=== PATIENT | male | born 1970 | race Caucasian/White ===

== ENCOUNTER 2017-01-25 07:15 | Emergency (ER) | payer OTHER ==
--- NOTE | ~2017-01-25 | ER ---
PATIENT'S NAME: [facility] AGE: 46 Y [address] ROOM: [place] [id number] LOCATION: [facility] ADMIT DATE: 01/25/2017 ER/Outpatient Report DISCHARGE DATE: 01/25/2017 FAMILY PHYSICIAN: Guero Chaney MD ATTENDING PHYSICIAN: Anu Jay Admission date and time documented on the medical record, I saw the patient at 0735 hours. CHIEF COMPLAINT: Right flank pain. HISTORY OF PRESENT ILLNESS: This patient is a 46-year-old male who, around 0200 hours this morning, had acute onset of right flank pain radiating to his right lower quadrant and into his CVA area. Cannot find any comfortable position. The pain is constant. Had nausea with one episode of vomiting. No diarrhea. Last bowel movement was 01/25/2017. He had some chills, but no fever. No chest pain or shortness of breath. No urinary frequency, urgency, or dysuria. No lightheadedness, dizziness, syncope, or near syncope. No fall or trauma. No headache or eyes, ears, nose, throat, neck, or spine pain. No joint or muscle swelling, redness, or pain. No skin eruptions or rash. He does have a history of non- insulin-dependent diabetes mellitus. No other endocrine problems. No neurologic changes. No psychiatric issues. HOME MEDICATIONS: See attached medication list. ALLERGIES: NONE. SOCIAL HISTORY: Nonsmoker and nondrinker. SIGNIFICANT PAST MEDICAL HISTORY: Degenerative osteoarthritis, diverticulosis, diverticulitis, non-insulin- dependent diabetes mellitus, and carpal tunnel syndrome. OPERATIONS: Carpal tunnel release. REVIEW OF SYSTEMS: All systems reviewed by me are negative with the exception of those discussed in the History of Present Illness. PATIENT'S NAME: [facility] AGE: 46 Y [address] ROOM: [place] [address] LOCATION: [facility] ADMIT DATE: 01/25/2017 ER/Outpatient Report DISCHARGE DATE: 01/25/2017 FAMILY PHYSICIAN: Guero Chaney MD ATTENDING PHYSICIAN: Anu Jay PHYSICAL EXAMINATION: VITAL SIGNS: Temperature 97 tympanic, pulse 65, respirations 24, blood pressure 156/82, and O2 saturation on room air is 99%. HEAD: Normocephalic. EYES, EARS, NOSE, AND THROAT: Clear. Mucous membranes moist. NECK: Negative. SPINE: Negative. LUNGS: Clear. HEART: Regular. ABDOMEN: Soft and nontender. Good bowel tones. No organomegaly or abnormal masses palpable. No CVA tenderness. Just has deep right flank discomfort. EXTREMITIES: Intact. NEUROVASCULAR: Intact. SKIN: Clear. LABORATORY DATA: CMS was normal except for an elevated glucose of 259. Elevated AST of 48. White count was 6700 with 84 segs, 8 lymphs, 6 monos, and 1 eos; hemoglobin was 14.3 with hematocrit 40.8; and platelet count was 288,000. Urine showed rare whites, 50 to 100 reds, rare epithelials, and negative bacteria per high- powered field. CT scan of the abdomen and pelvis with renal stone protocol showed a distal 1 mm right ureteral stone just outside the bladder. Mild hydronephrosis. CT scan was read by Radiology, see dictated transcribed report. IMPRESSION: 1. Right ureteral colic secondary to a distal 1 mm right ureteral stone just outside the bladder with mild hydronephrosis. 2. [id number] diabetes mellitus. PLAN: The patient was given IV normal saline fluids 100 mL an hour. He was given Toradol 30 mg IV in the emergency room for pain, Dilaudid 1 mg IV in the emergency room for pain, and Zofran 4 mg IV in the emergency room for nausea and vomiting. The patient was dismissed home. Observation. Activity as tolerated. Fluids and diet as tolerated. Strain urine. [place] 10/325 as needed for pain, #20. Flomax 0.4 mg one a day for 5 days, #5. Follow up with personal physician in 7 to 10 days for repeat urinalysis exam or sooner if needed. Discussion ensued with the patient concerning my findings and recommendations, he understands. ANU JAY MD PATIENT'S NAME: [facility] AGE: 46 Y [address] ROOM: [place] [address] LOCATION: [facility] ADMIT DATE: 01/25/2017 ER/Outpatient Report DISCHARGE DATE: 01/25/2017 FAMILY PHYSICIAN: Guero Chaney MD ATTENDING PHYSICIAN: Anu Jay/modl /[id number] d: 01/25/17 1410 t: 01/26/17 0613, OUTPATIENT REPORT
[2017-01-25 07:56] LABS: BILIRUBIN URINE NEGATIVE (NEGATIVE); BLOOD URINE 250 /UL (NEGATIVE); COLOR URINE YELLOW (YELLOW); GLUCOSE URINE 50 mg/dL (NEGATIVE); KETONE URINE NEGATIVE (NEGATIVE); LEUKOCYTES URINE NEGATIVE /UL (NEGATIVE); NITRITE URINE NEGATIVE (NEGATIVE); PROTEIN URINE NEGATIVE (NEGATIVE); TURBIDITY URINE CLEAR (CLEAR); UROBILINOGEN URINE NORMAL (NORMAL)
[2017-01-25 08:01] LABS: BASOPHIL # 0.1 K/uL (0.0-0.2); BASOPHIL % 0.4 %; EOSINOPHIL # 0.1 K/uL (0.0-0.5); EOSINOPHIL % 0.6 %; HEMATOCRIT 40.8 % (37.0-53.0); HEMOGLOBIN 14.3 g/dL (12.0-17.0); IMMATURE GRANULOCYTE # 0.1 K/uL (0.0-0.3); IMMATURE GRANULOCYTE % 0.7 %; LYMPHOCYTE # 1.4 K/uL (0.8-4.0); LYMPHOCYTE % 8.3 %; MCH 31.4 pg (27.0-34.0); MCV 89.7 fl (83.0-98.0); MONOCYTE # 0.9 K/uL (0.0-1.0); MONOCYTE % 5.6 %; MPV 9.4 fl (9.4-12.4); NEUTROPHIL # (ANC) 14.1 K/uL (1.4-9.0); NEUTROPHIL % 84.4 %; NRBC % 0 /100WBC (0-0.00); PLATELET COUNT 288 K/uL (150-450); RBC 4.55 M/uL (4.00-6.00); RDW-CV 12.4 % (11.9-14.6)
[2017-01-25 08:02] LABS: WBC 16.7 K/uL (4.0-11.0)
[2017-01-25 08:08] LABS: EPITHELIAL URINE RARE #/HPF (NEGATIVE); RBC URINE 50-100 #/HPF (NEGATIVE)
[2017-01-25 08:10] LABS: BACTERIA URINE NEGATIVE (NEGATIVE)
[2017-01-25 08:11] LABS: WBC URINE RARE #/HPF (NEGATIVE)
[2017-01-25 08:17] LABS: ALBUMIN 3.9 gm/dL (3.5-5.0); CREATININE 1.3 mg/dL (0.6-1.3); TOTAL BILIRUBIN 0.3 mg/dL (0.0-1.5)
[2017-01-25 08:20] LABS: ANION GAP 14.2 (10.0-19.0); POTASSIUM 4.2 mMol/L (3.7-5.1)
== END 2017-01-25 09:03 | disposition disaster alternative care site (69) ==
LOC: GMED 07:15
PROVIDERS: Emergency Medicine
DX: N13.2 Hydronephrosis with renal and ureteral calculous obstruction (principal); E11.9 Type 2 diabetes mellitus without complications; Z98.890 Other specified postprocedural states; Z79.84 Long term (current) use of oral hypoglycemic drugs; Z79.899 Other long term (current) drug therapy
CPT/HCPCS: J1170; J1885; J2405; J7030